=== PATIENT | male | born 1995 | race Caucasian/White ===

== ENCOUNTER 2018-10-16 21:35 | Emergency (ER) | payer BC ==
[~2018-10-16] VITALS: Ht 175.3 cm; Wt 72.6 kg
[2018-10-16 21:56] VITALS: BP 150/80
--- NOTE | 2018-10-16 21:59 | NUR ---
TO LOBBY A/W BED AMBULATORY
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
--- NOTE | 2018-10-16 22:40 | NUR ---
PATIENT BIB W/C O ER BED 1.
[2018-10-16] MEDS ORDERED: diphenhydrAMINE 50 MG/ML VIAL IVP ONE (23:00)
[2018-10-16] MEDS ORDERED: methylPREDNISolone SS 125 MG/2 ML VIAL IVP ONE (23:00)
[2018-10-16] MEDS ORDERED: EPINEPHrine PFS 0.1 MG/ML SYR IVP ONE (23:00)
[2018-10-16] MEDS ORDERED: ALBUTEROL 0.083% 2.5 MG/3 ML NEBU INH ONE (23:00)
--- NOTE | 2018-10-16 23:16 | NUR ---
GIVING HHN TX. PT AWAKE AND ALERT. GIRLFRIEND AT BEDSIDE WELL RNGIVING MEDS. PT IS TALKING AND LAUGHING. NO SOB OR DISTRESS NOTED. HHN TX GIVEN WITH NO ADVERSE REACTION CLEAR BREATH SOUNDS GOOD CHEST RISE.
--- NOTE | 2018-10-16 23:20 | NUR ---
0.3MG EPINEPHRINE ABBOJECT IVP GIVEN WITH EDUCATION AND 2 RN VERIFICATION (LAY MADRIGAL), PT VERBALIZED UNDERSTANDING. PT EXPERIENCED MILD PALPITATIONS AND CHEST DISCOMFORT, WHICH IMPROVED AND WAS TOLERABLE, VSS, WILL MONITOR.
--- NOTE | 2018-10-17 00:30 | NUR ---
DR RIVER AT BEDSIDE. PT REPORTS IMPROVEMENT IN SYMPTOMS, PT ABLE TO SWALLOW WATER WITHOUT DIFFICULTY. DENIES SOB OR THROAT TIGHTNESS. VSS. ALL NEEDS MET.
--- NOTE | 2018-10-17 00:30 | NUR ---
SUBSTANCE ABUSE PACKET PROVIDED
[2018-10-17 00:40] VITALS: BP 122/82
--- NOTE | 2018-10-17 00:40 | NUR ---
Patient discharged with v/s stable. Written and verbal after care instructions given and explained. Patient alert, oriented and verbalized understanding of instructions. Ambulatory with steady gait. All questions addressed prior to discharge. ID band removed. Patient advised to follow up with PMD. Rx of BENADRYL, EPIPEN, PREDNISONE given. Patient educated on indication of medication including possible reaction and side effects. Opportunity to ask questions provided and answered.
== END 2018-10-17 00:40 | disposition home or self-care (01) ==
LOC: MED 21:35
DX: T78.40XA Allergy, unspecified, initial encounter (principal); F15.10 Other stimulant abuse, uncomplicated; F14.10 Cocaine abuse, uncomplicated; X58.XXXA Exposure to other specified factors, initial encounter
CPT/HCPCS: 70360; 71045; 96374; 96375; 99283; J0171; J1200; J2930; J7613; Q0092; 94640

== ENCOUNTER 2018-11-21 23:33 | Emergency (ER) | payer BC ==
[~2018-11-21] VITALS: Ht 167.6 cm; Wt 81.6 kg
[2018-11-21 23:38] VITALS: BP 122/75
--- NOTE | 2018-11-21 23:43 | NUR ---
PT TAKEN TO BED 2
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
--- NOTE | 2018-11-22 00:02 | NUR ---
Dr. Marcos examining patient.
[2018-11-22 00:06] VITALS: BP 122/75
[2018-11-22] MEDS ORDERED: KETOROLAC 30 MG/ML VIAL IM ONE (00:10)
--- NOTE | 2018-11-22 00:52 | NUR ---
PT WOUNDS ON L ARM IRRIGATED WITH NORMAL SALINE
--- NOTE | 2018-11-22 00:53 | NUR ---
PT WOUNDS COVERED WITH NON ADHERENT DRESSING BEFORE BEING WRAPPED WITH PRETTY WRAP. +CSM
== END 2018-11-22 01:02 | disposition home or self-care (01) ==
LOC: MED 23:33
DX: S50.812A Abrasion of left forearm, initial encounter (principal); R55 Syncope and collapse; V43.52XA Car driver injured in collision with other type car in traffic accident, initial encounter; W22.10XA Striking against or struck by unspecified automobile airbag, initial encounter; Y93.89 Activity, other specified; Y92.488 Other paved roadways as the place of occurrence of the external cause; Y99.8 Other external cause status
CPT/HCPCS: 70450; 72125; 90471; 90715; 96372; 99284; J1885

== ENCOUNTER 2018-12-17 09:50 | Emergency (ER) | payer BC ==
[~2018-12-17] VITALS: Ht 175.3 cm; Wt 77.1 kg
--- NOTE | 2018-12-17 09:56 | NUR ---
Pt taken to bed 3.
[2018-12-17 09:58] VITALS: BP 149/86
--- NOTE | 2018-12-17 09:59 | NUR ---
BIB FRIEND. AAO X4 C/O PALPITATIONS, SOB, NUMBNESS TO BLE THIS MORNING. PT ADMITS TO USE OF METHAMPHETAMINE THROUGH INHALATION X 2 DAYS AND HASN'T SLEEP SINCE THEN. FULL CLEAR SPEECH, PERRLA SLUGGISH 4MM, NO FACIAL ASYMMETRY, EVEN AND UNLABORED BREATHING, EQUAL GABRIELA STRENGTH TO UPPER AND LOWER EXTREMITIES. PT AMBULATED WITH STEADY GAIT. PT PLACED ON FULL CORROSION PREVENTION METAL SPRAYER. HOB UP. BEDSIDE RAILS UP X1. ON LOW BED POSITION, LOCKED. ER TO EVALUATE PT.
--- NOTE | 2018-12-17 10:03 | NUR ---
Dr. Gomes evaluating patient at bedside.
[2018-12-17] MEDS ORDERED: LORazepam 2 MG/ML VIAL IM ONE (10:10)
[2018-12-17] MEDS ORDERED: LORazepam 2 MG/ML VIAL IVP ONE (10:10)
[2018-12-17] MEDS ORDERED: NACL 0.9% 1,000 ML IV ONE (10:10)
--- NOTE | 2018-12-17 10:35 | NUR ---
[employer] INSURANCE TERRITORY MANAGER AT BEDSIDE
[2018-12-17 10:40] LABS: BASOPHILS % (AUTO) 0.3 % (0.0-2.0); EOSINOPHILS % (AUTO) 0.2 % (0.0-4.0); HEMATOCRIT 46.1 % (36-52); HEMOGLOBIN 15.6 g/dL (12.0-18.0); LYMPHOCYTES # (AUTO) 1.4 K/uL (2.0-11.5); LYMPHOCYTES % (AUTO) 19.5 % (20.5-51.1); MEAN CORPUSCULAR HEMOGLOBIN 28 pg (27-31); MEAN CORPUSCULAR HGB CONC 34 g/dL (33-37); MEAN CORPUSCULAR VOLUME 83.3 fL (80-94); MONOCYTES # (AUTO) 0.5 K/uL (0.8-1.0); MONOCYTES % (AUTO) 6.9 % (1.7-9.3); NEUTROPHILS # (AUTO) 5.3 K/uL (1.8-7.7); NEUTROPHILS % (AUTO) 73.1 % (42.2-75.2); PLATELET COUNT (AUTO) 323 K/uL (140-450); RED BLOOD CELL COUNT(AUTO) 5.53 MIL/uL (4.20-6.10); RED CELL DISTRIBUTION WIDTH 13.9 % (11.6-13.7); WHITE BLOOD COUNT (AUTO) 7.3 K/uL (4.8-10.8)
--- NOTE | 2018-12-17 11:00 | NUR ---
PT WAS GIVEN BLANKETS FOR COMFORT AND LIGHTS WERE DIMMED FOR PT'S RELAXATION. NO SIGNS AND SYMPTOMS OF DISTRESS NOTED. PT'S FRIEND AT BEDSIDE. WILL CONTINUE TO MONITOR.
[2018-12-17 11:10] LABS: CARBON DIOXIDE 27.3 mmol/L (21-32); CREATININE 1.2 mg/dL (0.7-1.3); POTASSIUM 4.3 mmol/L (3.5-5.1)
[2018-12-17 11:17] LABS: ALBUMIN 4.4 g/dL (3.4-5.0); TOTAL BILIRUBIN 0.7 mg/dL (0.0-1.0)
[2018-12-17 11:40] LABS: CKMB RELATIVE INDEX 0.3 (0.0-2.5); CREATINE KINASE MB 1.7 ng/mL (0-3.6)
--- NOTE | 2018-12-17 12:01 | NUR ---
IV removed, catheter intact and site benign. Applied folded 4x4 gauze and tape to stop bleeding.
[2018-12-17 12:02] VITALS: BP 120/70
--- NOTE | 2018-12-17 12:02 | NUR ---
Patient discharged with v/s stable. Written and verbal after care instructions given and explained. Patient alert, oriented and verbalized understanding of instructions. Ambulatory with steady gait. All questions addressed prior to discharge. ID band removed. Patient advised to follow up with PMD. Rx of Xanax 0.5mg given. Patient educated on indication of medication including possible reaction and side effects. Opportunity to ask questions provided and answered.
== END 2018-12-17 12:02 | disposition home or self-care (01) ==
LOC: MED 09:50
DX: F15.10 Other stimulant abuse, uncomplicated (principal)
CPT/HCPCS: 36415; 80053; 82550; 82553; 84484; 85025; 93005; 96361; 96374; 99284; J2060; J7030